=== PATIENT | male | born 1995 | race Caucasian/White ===

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

== ENCOUNTER 2017-07-06 00:14 | Emergency (ER) | payer BC, OTHER ==
[~2017-07-06] VITALS: Ht 193 cm; Wt 88.3 kg
[2017-07-06 00:19] VITALS: TEMP 36.3; Ht 193 cm; Wt 88.3 kg
--- NOTE | 2017-07-06 01:03 | EMERGENCY ROOM VISIT NOTE ---
History Report prepared by Judieibluis f: Daniel Hinds Under the Supervision of: Dr. Nilesh Brewer D.O. First contact with patient: 00:23 Chief Complaint: NEURO SYMPTOMS Stated Complaint: NUMBNESS IN HANDS AND BODY-GOTTEN WORSE History of Present Illness The patient is a 22 year old male who presents to the Emergency Room with complaints of intermittent general body numbness for several days. He notes his hands and arms initially went numb. He notes when he lies down the numbness worsened. He notes a headache. He states that he could not sleep. He plays basketball in college. He is usually very active. He took a 30 minute walk and his feet became numb. He notes this happened one day for an hour a few days ago. He put his hands in his pocket and was having trouble grabbing his phone out of his pocket. He was seen at an acute care clinic at 1900 last night. They did blood work, though no results were given to him. They told him he may have a vitamin deficiency. He recently completed school this past week. He has a peanut allergy. He states that there is not a problem with someone touching him , though when he tries to touch something he reports it takes him a while to feel the object he is touching. He states that when he was in bed, he was grabbing the covers, though he could not feel the covers he was grabbing. He notes that he is uncomfortable. He states that he has tried to ignore it, though it persists. Source of History: patient Position: other (general body) Quality: numbness Timing: intermittent Associated Symptoms: + headache Review of Systems See HPI for pertinent positives & negatives. A total of 10 systems reviewed and were otherwise negative. Past Medical & Surgical Medical Problems: (1) Abrasions of multiple sites (2) Asthma (3) Concussion (4) Multiple contusions Family History Cancer Social History Smoking Status: Never Smoker Smokeless Tobacco Use: No Alcohol Use: none Drug Use: none Marital Status: single Housing Status: lives with family Occupation Status: student Current/Historical Medications Scheduled Epinephrine (Epipen), 0.3 MG IM UD Allergies Coded Allergies: Nut Tree (Verified Allergy, Unknown, ANAPHYLAXIS, 07/10/16) Peanut (Verified Allergy, Unknown, ANAPHYLAXIS, 07/10/16) Soy Protein (Verified Allergy, Unknown, cough,vomiting, 07/10/16) [place] Seed (Verified Allergy, Unknown, ANAPHYLAXIS, 07/10/16) Physical Exam Vital Signs Date Time Temp Pulse Resp B/P (MAP) Pulse Ox O2 Delivery O2 Flow Rate FiO2 07/06/17 01:36 72 18 132/78 98 Room Air 07/06/17 00:19 36.3 58 18 146/93 99 Room Air Physical Exam VITAL SIGNS: were reviewed as above. GENERAL:Non-toxic in appearance. SKIN: Warm dry and pink. HEAD: Normocephalic and atraumatic. OROPHARYNX: Is clear and moist NECK: Supple without lymphadenopathy or meningismus. LUNGS: clear. HEART: Regular rate and rhythm. ABDOMEN: Soft and nontender. EXTREMITIES: Warm and well perfused. NEUROLOGICALLY: Awake alert and oriented without focal deficit. Cranial nerves 2 -12 are intact. There is no pronator drift. Cerebellar testing is within normal limits. There is no nystagmus. There is no facial droop. Speech is clear. Vision is grossly normal. MUSCULOSKELETAL: Good muscle tone. No evidence of trauma. Medical Decision & Procedures ER Provider Diagnostic Interpretation: CT scan of the head: Per my interpretation there is no acute abnormality. ED Course 0025: Previous medical records were reviewed. The patient was evaluated in room B6. A complete history and physical examination was performed. Medical Decision Differentials include: Acute coronary syndrome, myocardial infarction, CVA, TIA , anemia, infection, pneumonia, UTI, pyelonephritis, poor nutrition, dehydration , electrolyte disturbance, and hypoglycemia. This is a 22-year-old male who presents to the ED with a chief complaint of paresthesias to his hands. The patient states that this is been going on this evening. He states that his hands feel as though they cannot feel normally. He states that he felt similar to this a few days ago as well. Today his dad and him went for a walk after he reported this to his dad and during the walk it did not seem to bother him as much. It seems to be mostly at night. The patient had blood work done earlier today at the acute care center in [place]. They have not gotten the results yet. The patient's physical exam here is completely normal, neurologic exam is completely normal. CT scan of the brain did not show acute process. I did not feel repeating blood work tonight will be of significant benefit and therefore I suggested that they wait for the blood work that is pending from the outside facility. The patient was felt to be stable for discharge. Medication Reconcilliation Current Medication List: was personally reviewed by me Blood Pressure Screening Patient's blood pressure: Elevated blood pressure Blood pressure disposition: Elevated BP felt to be situational Impression Primary Impression: Paresthesia of both hands Scribe Attestation The scribe's documentation has been prepared under my direction and personally reviewed by me in its entirety. I confirm that the note above accurately reflects all work, treatment, procedures, and medical decision making performed by me. Departure Information Dispostion Home / Self-Care Referrals Jessie Espinal D.O. (PCP) Patient Instructions ED Paraesthesias, My [facility] Additional Instructions Follow-up with your doctor for review of blood work. Neurology follow-up if symptoms persist.
[2017-07-06 01:36] VITALS: BP 132/78; PULSE 72; O2SAT 98
--- NOTE | 2017-07-06 08:34 | DIAGNOSTIC IMAGING REPORT ---
HEAD WITHOUT CONTRAST (CT) CLINICAL HISTORY: 22 years-old Male presenting with paresthesias, diffuse numbness. TECHNIQUE: Multidetector CT imaging of the head was performed without the use of intravenous contrast. IV contrast: None. A dose lowering technique was used consistent with the principles of ALARA (as low as reasonably achievable). COMPARISON: 02/10/2013. CT DOSE (mGy.cm): The estimated cumulative dose is 614.27 mGy.cm. FINDINGS: Jet Wiper topogram: Unremarkable. Ventricles and sulci normal in size. Brain parenchyma normal in appearance with preserved awan-white differentiation. No mass effect or midline shift. No hemorrhage or acute territorial infarct. No extra-axial fluid collection. Paranasal sinuses and mastoid air cells clear. Calvarium intact. IMPRESSION: 1. No acute intracranial abnormality. Electronically signed by: Sergio Deleon M.D. 07/06/2017 8:33 AM Dictated Date/Time: 07/06/2017 6:57 AM
== END 2017-07-06 01:51 | disposition home or self-care (01) ==
LOC: C.EDB 00:16
DX: R20.2 Paresthesia of skin (principal); Z91.010 Allergy to peanuts; Z91.018 Allergy to other foods

== ENCOUNTER → 2017-07-14 | Outpatient (CLI) | payer OTHER ==
[~2017-07-14] MED LIST changes: +GADAVIST IV PRN
--- NOTE | 2017-07-14 18:39 | DIAGNOSTIC IMAGING REPORT ---
CERVICAL SPINE MRI WITH AND WITHOUT CONTRAST HISTORY: PARETHESIA,UPPER LIMB TECHNIQUE: Multiplanar multisequence MRI of the cervical spine was performed both before and after the use of intravenous contrast. COMPARISON STUDY: Cervical spine CT 02/10/2013. FINDINGS: Mild motion artifact. Straightening of the cervical spine. Alignment is intact. No fracture or subluxation. Prevertebral soft tissues and the C1-C2 interval are intact. Disc spaces are preserved. The cervical spinal cord is normal in course, caliber, and signal intensity. No abnormal enhancement. No disc herniations. C2-C3: No significant central canal or neural foraminal narrowing. C3-C4: No significant central canal or neural foraminal narrowing. C4-C5: No significant central canal or neural foraminal narrowing. C5-C6: No significant central canal or neural foraminal narrowing. C6-C7: No significant central canal or neural foraminal narrowing. C7-T1: No significant central canal or neural foraminal narrowing. IMPRESSION: Mild motion artifact. No significant abnormality within the cervical spine. Electronically signed by: Jose Martin Brewer M.D. 07/14/2017 6:38 PM Dictated Date/Time: 07/14/2017 6:27 PM
== END | disposition home or self-care (01) ==
LOC: C.MRI 16:47
PROVIDERS: ATTEND Pediatrics
DX: R20.2 Paresthesia of skin (principal); M54.12 Radiculopathy, cervical region